=== PATIENT | female | born 2000 | race Caucasian/White ===

== ENCOUNTER 2019-02-12 09:46 | Emergency (ER) | payer OTHER ==
[~2019-02-12] VITALS: Ht 172.7 cm; Wt 77.3 kg
[2019-02-12 09:55] VITALS: TEMP 97.8
[2019-02-12 10:26] LABS: COLLECTION METHOD CLEAN CATCH
[2019-02-12 10:32] LABS: MUCOUS Present /lpf; PH 5 (5-8); SQUAMOUS EPITHELIAL 0-2 /hpf; URINE APPEARANCE Clear; URINE BACTERIA None Seen /hpf; URINE BILIRUBIN Negative (NEGATIVE); URINE BLOOD Negative (NEGATIVE); URINE COLOR Yellow; URINE GLUCOSE Negative (NEGATIVE); URINE KETONE Negative (NEGATIVE); URINE LEUKOCYTE ESTERASE Negative (NEGATIVE); URINE NITRATE Negative (NEGATIVE); URINE PROTEIN(semi-quant) Negative (NEGATIVE); URINE RBC 0-2 /hpf; URINE UROBILINOGEN Negative (NEGATIVE)
[2019-02-12 11:20] LABS: BASO % 0.3 % (0.0-2.0); EOS # 0.1 (0.0-0.7); EOS % 0.9 % (0-4.0); GRAN # 8.4 (1.4-6.5); GRAN % 80.7 % (42.2-75.2); HEMATOCRIT 45.1 % (35.0-45.0); LYMPH # 1.4 (1.2-3.4); LYMPH % 13.4 % (20.0-51.0); MEAN CELL VOLUME 92 fl (80.0-95.0); MEAN CORPUSCULAR HEMOGLOBIN 31 pg (26.0-32.0); MEAN CORPUSCULAR HGB CONC 33 g/dl (33.0-37.0); MEAN PLATELET VOLUME 9.5 fl (7.4-10.4); MONO # 0.5 (0.1-0.6); MONO % 4.4 % (1.7-9.3); PLATELET COUNT 399 K/mm3 (130-400); RED BLOOD COUNT 4.89 M/mm3 (4.10-5.30); REDCELL DISTRIBUTION WIDTH-CV 11.9 % (11.5-14.5)
[2019-02-12 11:34] LABS: ALANINE AMINOTRANSFERASE 14 U/L (9-52); ALBUMIN 5.1 gm/dL (3.5-5.0); ALKALINE PHOSPHATASE 82 U/L (50-136); ANION GAP 15 mmol/L (7-16); AST,SGOT 25 U/L (15-37); BILIRUBIN,TOTAL 0.4 mg/dL (0.0-1.0); BLOOD UREA NITROGEN 13 mg/dL (7-17); CALCIUM 10.3 mg/dL (8.4-10.2); CARBON DIOXIDE 24 mmol/L (22-30); CHLORIDE 102 mmol/L (98-107); CREATININE, serum 0.65 (0.52-1.25); GLUCOSE 98 mg/dL (74-106); LIPASE 33 U/L (23-300); POTASSIUM 4.2 mmol/L (3.4-5.0); SODIUM 141 mmol/L (137-145); TOTAL PROTEIN 9.1 gm/dL (6.4-8.2)
[2019-02-12 11:38] LABS: C-REACTIVE PROTEIN < 0.5 mg/dL (0.0-0.9)
[2019-02-12] MEDS ORDERED: ZOFRAN 4MG T4 MG/TAB PO (13:24)
[2019-02-12 13:43] VITALS: BP 133/78; PULSE 64
== END 2019-02-12 13:43 | disposition home or self-care (01) ==
LOC: COL.ER 09:46
PROVIDERS: Nurse Practitioner Primary Care
DX: R10.30 Lower abdominal pain, unspecified (principal); R11.0 Nausea; F17.290 Nicotine dependence, other tobacco product, uncomplicated
CPT/HCPCS: J2405; J7030